=== PATIENT | female | born 1940 | race Caucasian/White ===

== ENCOUNTER 2023-12-20 02:56 | Emergency (ER) | payer BC, MEDICARE, OTHER ==
[2023-12-20] MEDS ORDERED: OLANZapine 10 MG Vial IM ONE (03:23)
== END 2023-12-20 04:06 | disposition home or self-care (01) ==
LOC: JD.ED 02:56
DX: F32.3 Major depressive disorder, single episode, severe with psychotic features (principal)
CPT/HCPCS: 99282; 99284